=== PATIENT | female | born 1970 | race Caucasian/White ===

== ENCOUNTER 2019-05-24 22:50 | Emergency (ER) | payer MEDICAID ==
[~2019-05-24] VITALS: Ht 152.4 cm; Wt 74.8 kg
[2019-05-24 22:55] VITALS: BP_SYST 136
[2019-05-24] MEDS ORDERED: KETOROLAC TROMETHAMINE 60 MG/2 ML VIAL IM ONE (23:15)
[2019-05-24 23:52] VITALS: BP_SYST 136
== END 2019-05-24 23:52 | disposition home or self-care (01) ==
LOC: SED 22:50
DX: G44.209 Tension-type headache, unspecified, not intractable (principal)
CPT/HCPCS: 96372; 99283; J1885

== ENCOUNTER 2022-11-06 01:49 | Emergency (ER) | payer SELFPAY ==
[~2022-11-06] VITALS: Ht 154.9 cm; Wt 65.8 kg
[2022-11-06 02:03] VITALS: BP_SYST 140
--- NOTE | 2022-11-06 02:08 | NUR ---
Patient to ER [facility] for evaluation. Side rails up. ER at bedside examining patient.
--- NOTE | 2022-11-06 02:09 | NUR ---
Pt C/O throat tightness AOX4 VSS Able to make needs known Will continue to monitor
--- NOTE | 2022-11-06 02:51 | NUR ---
Patient given written and verbal discharge instructions and verbalizes understanding. ER MD discussed with patient the results and treatment provided. Patient in stable condition. ID arm band removed. IV catheter removed intact and dressing applied, no active bleeding. Patient educated on pain management and to follow up with PMD. Opportunity for questions provided and answered. Medication side effect fact sheet provided.
[2022-11-06 02:52] VITALS: BP_SYST 126
== END 2022-11-06 02:50 | disposition home or self-care (01) ==
LOC: SED 01:49
DX: J39.2 Other diseases of pharynx (principal); R20.2 Paresthesia of skin; R07.0 Pain in throat; Z79.899 Other long term (current) drug therapy
CPT/HCPCS: 93005; 99283